=== PATIENT | female | born 1930 | race Caucasian/White ===

== ENCOUNTER 2016-12-02 12:53 | Inpatient (IN) | payer OTHER, BC ==
[~2016-12-02] VITALS: Ht 165.1 cm; Wt 75.5 kg
[2016-12-02 14:29] LABS: HEMATOCRIT 37.6 % (36.0-46.0); MCH 29.4 PG (29.0-34.0); MCHC 34.8 G/DL (30.0-36.0); MCV 84.3 FL (83-99); MEAN PLAT.VOLUME 9.1 uM^3 (9.5-12.4); PLATELET COUNT 285 K/uL (156-360); RBC DIS.WIDTH-CV 12.2 % (11.8-14.6); RBC DIS.WIDTH-SD 37.1 % (39-53); RED BLOOD COUNT 4.46 M/uL (3.80-5.20)
[2016-12-02 14:33] LABS: CHLORIDE 91 mEq/L (99-109); POTASSIUM 3.9 mEq/L (3.7-5.4); SODIUM 126 mEq/L (136-147)
[2016-12-02 14:34] LABS: GLUCOSE 118 mg/dL (70-99)
[2016-12-02 14:36] LABS: ANION GAP 14 MEQ/L (2-14)
[2016-12-02 14:38] LABS: GFR ESTIMATE (CALCULATED) 30 mL/min/
[2016-12-02 14:39] LABS: UREA NITROGEN (BUN) 30 mg/dL (9-23)
[2016-12-02] MEDS ORDERED: ZYRTEC5 MG PO (16:06)
[2016-12-02] MEDS ORDERED: OMEPRAZOLE40 M1 PO (16:07)
[2016-12-02] MEDS ORDERED: MULTIVITAMIN1 EAC2 PO (16:07)
[2016-12-02] MEDS ORDERED: TRAMADOL HCL50 MG PO (16:08)
[2016-12-02] MEDS ORDERED: LISINOPRIL20 MG PO (16:08)
[2016-12-02] MEDS ORDERED: BISOPROLOL-HCT1 EACH PO (16:08)
[2016-12-02] MEDS ORDERED: MELOXICAM15 MG PO (16:09)
[2016-12-02] MEDS ORDERED: LO-DOSE ASPIRIN81 M2 PO (16:09)
[2016-12-02 17:37] LABS: TROP-I INTERPRETATION POSITIVE
[2016-12-02 17:51] LABS: TROPONIN-I 3.55 ng/mL (0.0-0.30)
[2016-12-02 18:11] LABS: ADD MIUA? YES; BILIRUBIN NEGATIVE; BLOOD LARGE; COLOR YELLOW ((YELLOW)); GLUCOSE (STRIP) NEGATIVE; KETONES TRACE; LEUKOCYTES NEGATIVE; NITRITE NEGATIVE; PH, URINE 5.5 (5-8); PROTEIN (STRIP) 30; SPECIFIC GRAVITY 1.016 (1.000-1.030); UROBILINOGEN 0.2 MG/DL (0.2-1.0)
[2016-12-02 18:12] LABS: INTER. NORMALIZED RATIO 1.1; PROTHROMBIN TIME 11.4 (9.2-11.2); PTT 36.4 (25-32)
[2016-12-02 18:29] LABS: BACTERIA NONE SEEN; CASTS NONE SEEN /LPF; CRYSTALS NONE SEEN; EPITHELIAL CELLS RARE; MUCUS NONE SEEN; PATHOLOGICAL CAST NONE SEEN; SMALL ROUND CELL NONE SEEN; UCUL ADDED? NO; WHITE BLOOD CELLS 0-5 /HPF (0-5); YEAST-LIKE CELL NONE SEEN
[2016-12-02] MEDS ORDERED: PRILOSEC20 MG PO (18:42)
[2016-12-02] MEDS ORDERED: SYSTANE GEL EYE10 ML BOTH EYES (18:44)
[2016-12-02] MEDS ORDERED: AMBIEN5 MG PO (18:44)
[2016-12-02] MEDS ORDERED: CALCIUM 500 +1 EAC4 PO (19:18)
[2016-12-02 20:19] LABS: CREATINE KINASE 7998 IU/L (1-294)
[2016-12-02 23:01] VITALS: BP 117/55
[2016-12-02 23:02] VITALS: BP 117/55
[2016-12-02 23:18] LABS: TROP-I INTERPRETATION POSITIVE
[2016-12-02 23:46] LABS: TROPONIN-I 2.28 ng/mL (0.0-0.30)
[2016-12-03 02:20] VITALS: BP 118/59
[2016-12-03 07:13] LABS: Estimated Average Glucose 120 mg/dL (70-123); HEMOGLOBIN A1c (GLYCOHEMOGLOB) 5.8 % HGB (Below 5.7)
[2016-12-03 07:14] LABS: EOSINOPHIL (%) 4.1 % (0-5); EOSINOPHIL COUNT 0.1 K/uL (0-0.3); HEMATOCRIT 30.9 % (36.0-46.0); IMMATURE GRANULOCYTE (%) 0.3 % (0.0-0.7); LYMPHOCYTE COUNT 0.9 K/uL (1.0-2.8); MCH 29.2 PG (29.0-34.0); MCHC 34.3 G/DL (30.0-36.0); MCV 85.1 FL (83-99); MEAN PLAT.VOLUME 8.9 uM^3 (9.5-12.4); MONOCYTE (%) 9.9 % (3-12); MONOCYTE COUNT 0.3 K/uL (0-0.8); NEUTROPHIL (%) 60.5 % (45-76); NEUTROPHIL COUNT 2.1 K/uL (1.8-6.4); PLATELET COUNT 209 K/uL (156-360); RBC DIS.WIDTH-CV 12.7 % (11.8-14.6); RBC DIS.WIDTH-SD 39.4 % (39-53); RED BLOOD COUNT 3.63 M/uL (3.80-5.20)
[2016-12-03 07:15] LABS: WHITE BLOOD COUNT 3.5 K/uL (4.1-10.2)
[2016-12-03 07:48] VITALS: BP 115/56
[2016-12-03 07:51] LABS: ALKALINE PHOSPHATASE 34 IU/L (3-129); ANION GAP 10 MEQ/L (2-14); CHLORIDE 92 MEQ/L (99-109); GFR ESTIMATE (CALCULATED) 41 mL/min/; GLUCOSE 111 mg/dL (70-99); HDL CHOLESTEROL 36 MG/DL (Desirable>=50); LDL CHOLESTEROL 73 mg/dL (Desirable<100); NON-HDL CHOLESTEROL 88 mg/dL (Desirable<160); POTASSIUM 3.5 MEQ/L (3.7-5.4); SAMPLE HEMOLYSIS CHECK 0; SAMPLE ICTERIC CHECK 0; SAMPLE LIPEMIA CHECK 0; SODIUM 126 MEQ/L (136-147); TOTAL BILIRUBIN 0.3 MG/DL (0.0-1.0); TOTAL CHOLESTEROL 124 mg/dL (Desirable<200); TRIGLYCERIDES 75 MG/DL (Normal: <150); UREA NITROGEN (BUN) 31 mg/dL (9-23)
[2016-12-03 07:57] LABS: TROP-I INTERPRETATION POSITIVE
[2016-12-03 08:03] LABS: TROPONIN-I 1.94 ng/mL (0.0-0.30)
[2016-12-03 09:52] LABS: CREATINE KINASE 7340 IU/L (1-294)
[2016-12-03 11:35] VITALS: BP 120/59
[2016-12-03 14:42] LABS: TROP-I INTERPRETATION POSITIVE
[2016-12-03 15:09] LABS: TROPONIN-I 1.39 ng/mL (0.0-0.30)
[2016-12-03 15:29] VITALS: BP 115/58
[2016-12-03 19:49] VITALS: BP 139/64
[2016-12-03 22:14] VITALS: BP 155/71
[2016-12-03 22:53] LABS: TROP-I INTERPRETATION POSITIVE
[2016-12-03 22:54] LABS: TROPONIN-I 1.28 ng/mL (0.0-0.30)
[2016-12-04 03:16] VITALS: BP 126/75
[2016-12-04 06:08] LABS: EOSINOPHIL (%) 5.8 % (0-5); EOSINOPHIL COUNT 0.2 K/uL (0-0.3); HEMATOCRIT 34.1 % (36.0-46.0); LYMPHOCYTE COUNT 0.9 K/uL (1.0-2.8); MCH 29.2 PG (29.0-34.0); MCV 85.9 FL (83-99); MEAN PLAT.VOLUME 9.4 uM^3 (9.5-12.4); MONOCYTE (%) 15.4 % (3-12); MONOCYTE COUNT 0.6 K/uL (0-0.8); NEUTROPHIL (%) 55.5 % (45-76); NEUTROPHIL COUNT 2.1 K/uL (1.8-6.4); PLATELET COUNT 235 K/uL (156-360); RBC DIS.WIDTH-CV 12.8 % (11.8-14.6); RBC DIS.WIDTH-SD 40.1 % (39-53); RED BLOOD COUNT 3.97 M/uL (3.80-5.20); WHITE BLOOD COUNT 3.8 K/uL (4.1-10.2)
[2016-12-04 06:45] LABS: ANION GAP 7 MEQ/L (2-14); CHLORIDE 96 MEQ/L (99-109); GFR ESTIMATE (CALCULATED) 41 mL/min/; GLUCOSE 95 mg/dL (70-99); SAMPLE HEMOLYSIS CHECK 0; SAMPLE ICTERIC CHECK 0; SAMPLE LIPEMIA CHECK 0; SODIUM 130 MEQ/L (136-147); UREA NITROGEN (BUN) 28 mg/dL (9-23)
[2016-12-04 06:48] LABS: POTASSIUM 4.5 MEQ/L (3.7-5.4)
[2016-12-04 08:39] VITALS: BP 137/61
[2016-12-04 12:23] VITALS: BP 109/54
[2016-12-04 16:02] VITALS: BP 138/64
[2016-12-04 18:55] VITALS: BP 157/80
[2016-12-04 22:28] VITALS: BP 152/67
[2016-12-05 04:09] VITALS: BP 142/89
[2016-12-05 07:31] VITALS: BP 131/61
[2016-12-05 11:36] VITALS: BP 126/58
[2016-12-05 12:55] LABS: ANION GAP 11 MEQ/L (2-14); CHLORIDE 94 MEQ/L (99-109); GFR ESTIMATE (CALCULATED) 50 mL/min/; GLUCOSE 125 mg/dL (70-99); POTASSIUM 4.4 MEQ/L (3.7-5.4); SAMPLE HEMOLYSIS CHECK 0; SAMPLE ICTERIC CHECK 0; SAMPLE LIPEMIA CHECK 0; SODIUM 131 MEQ/L (136-147); UREA NITROGEN (BUN) 27 mg/dL (9-23)
[2016-12-05 15:47] VITALS: BP 147/65
[2016-12-05 20:06] VITALS: BP 127/60
[2016-12-05 22:50] VITALS: BP 127/59
[2016-12-06 03:21] VITALS: BP 126/75
[2016-12-06 06:39] LABS: EOSINOPHIL (%) 8.5 % (0-5); EOSINOPHIL COUNT 0.5 K/uL (0-0.3); HEMATOCRIT 34.3 % (36.0-46.0); IMMATURE GRANULOCYTE (%) 0.3 % (0.0-0.7); LYMPHOCYTE COUNT 1.5 K/uL (1.0-2.8); MCH 29.6 PG (29.0-34.0); MCHC 33.8 G/DL (30.0-36.0); MCV 87.5 FL (83-99); MEAN PLAT.VOLUME 9.7 uM^3 (9.5-12.4); MONOCYTE (%) 10.9 % (3-12); MONOCYTE COUNT 0.6 K/uL (0-0.8); NEUTROPHIL (%) 55.3 % (45-76); NEUTROPHIL COUNT 3.2 K/uL (1.8-6.4); PLATELET COUNT 259 K/uL (156-360); RBC DIS.WIDTH-CV 12.9 % (11.8-14.6); RBC DIS.WIDTH-SD 41.4 % (39-53); RED BLOOD COUNT 3.92 M/uL (3.80-5.20)
[2016-12-06 06:42] LABS: WHITE BLOOD COUNT 5.9 K/uL (4.1-10.2)
[2016-12-06 06:58] LABS: ANION GAP 10 MEQ/L (2-14); CHLORIDE 95 MEQ/L (99-109); GFR ESTIMATE (CALCULATED) 41 mL/min/; GLUCOSE 104 mg/dL (70-99); POTASSIUM 4.7 MEQ/L (3.7-5.4); SAMPLE HEMOLYSIS CHECK 0; SAMPLE ICTERIC CHECK 0; SAMPLE LIPEMIA CHECK 0; SODIUM 132 MEQ/L (136-147); UREA NITROGEN (BUN) 28 mg/dL (9-23)
[2016-12-06 07:45] VITALS: BP 129/58
[2016-12-06 11:09] VITALS: BP 124/60
[2016-12-06] MEDS ORDERED: CLOPIDOGREL75 MG PO (13:54)
[2016-12-06] MEDS ORDERED: DONEPEZIL HCL5 MG PO (13:54)
[2016-12-06] MEDS ORDERED: LIPITOR20 MG PO (13:57)
[2016-12-06 16:05] VITALS: BP 151/67
== END 2016-12-06 16:55 | DRG 683 ==
LOC: EME 12:53 → 4EAST 19:28 → EDOF 19:28 → 4EAST 19:28
PROVIDERS: Family Medicine
DX: N17.9 Acute kidney failure, unspecified (principal); M62.82 Rhabdomyolysis; E87.1 Hypo-osmolality and hyponatremia; E87.6 Hypokalemia; R79.89 Other specified abnormal findings of blood chemistry; S09.90XA Unspecified injury of head, initial encounter; W19.XXXA Unspecified fall, initial encounter; Y92.009 Unspecified place in unspecified non-institutional (private) residence as the place of occurrence of the external cause; F03.90 Unspecified dementia, unspecified severity, without behavioral disturbance, psychotic disturbance, mood disturbance, and anxiety; R31.9 Hematuria, unspecified; R55 Syncope and collapse; R42 Dizziness and giddiness; R29.6 Repeated falls; Z91.81 History of falling; R73.9 Hyperglycemia, unspecified; I10 Essential (primary) hypertension; E78.5 Hyperlipidemia, unspecified; K21.9 Gastro-esophageal reflux disease without esophagitis; I45.10 Unspecified right bundle-branch block; I44.4 Left anterior fascicular block; M19.90 Unspecified osteoarthritis, unspecified site; M81.0 Age-related osteoporosis without current pathological fracture; Z85.828 Personal history of other malignant neoplasm of skin
CPT/HCPCS: 70450; 71020; 80048; 80053; 80061; 81003; 82550 91; 83036; 84484; 85025; 85027; 85610; 85730; 87086; 93005; 93306; 99281; 99285; J7030

== ENCOUNTER 2017-05-09 08:49 | Inpatient (IN) | payer OTHER, BC ==
[~2017-05-09] VITALS: Ht 167.6 cm; Wt 66.3 kg
[~2017-05-09 08:49] MED LIST: AMBIEN5 MG PO; BISOPROLOL-HCT1 EACH PO; CALCIUM 500 +1 EAC4 PO; CLOPIDOGREL75 MG PO; DONEPEZIL HCL5 MG PO; LIPITOR20 MG PO; LISINOPRIL20 MG PO; LO-DOSE ASPIRIN81 M2 PO; MELOXICAM15 MG PO; MULTIVITAMIN1 EAC2 PO; OMEPRAZOLE40 M1 PO; PRILOSEC20 MG PO; SYSTANE GEL EYE10 ML BOTH EYES; TRAMADOL HCL50 MG PO; ZYRTEC5 MG PO
[2017-05-09 10:49] LABS: EOSINOPHIL (%) 0.1 % (0-5); HEMATOCRIT 35.9 % (36.0-46.0); IMMATURE GRANULOCYTE (%) 0.7 % (0.0-0.7); IMMATURE GRANULOCYTE COUNT 0.1 K/uL; INSTRUMENT ABS NEUTROPHIL CT 8.5 K/uL; LYMPHOCYTE COUNT 0.6 K/uL (1.0-2.8); MCV 85.3 FL (83-99); MEAN PLAT.VOLUME 8.7 uM^3 (9.5-12.4); MONOCYTE (%) 7.1 % (3-12); MONOCYTE COUNT 0.7 K/uL (0-0.8); NEUTROPHIL (%) 85.9 % (45-76); NEUTROPHIL COUNT 8.5 K/uL (1.8-6.4); PLATELET COUNT 336 K/uL (156-360); RBC DIS.WIDTH-CV 12.4 % (11.8-14.6); RBC DIS.WIDTH-SD 38.7 % (39-53); RED BLOOD COUNT 4.21 M/uL (3.80-5.20); WHITE BLOOD COUNT 9.9 K/uL (4.1-10.2)
[2017-05-09 10:59] LABS: INTER. NORMALIZED RATIO 1.1; PROTHROMBIN TIME 11.4 (9.2-11.2); PTT 35.5 (25-32)
[2017-05-09 11:08] LABS: CHLORIDE 93 mEq/L (99-109); POTASSIUM 4.5 mEq/L (3.7-5.4); SODIUM 128 mEq/L (136-147)
[2017-05-09 11:09] LABS: GLUCOSE 127 mg/dL (70-99)
[2017-05-09 11:11] LABS: ANION GAP 10 MEQ/L (2-14)
[2017-05-09 11:13] LABS: GFR ESTIMATE (CALCULATED) 56 mL/min/
[2017-05-09 11:14] LABS: UREA NITROGEN (BUN) 18 mg/dL (9-23)
[2017-05-09 11:16] LABS: CREATINE KINASE 630 IU/L (1-294); TOTAL CK 630 IU/L (1-294); TROP-I INTERPRETATION NEGATIVE; TROPONIN-I 0.02 ng/mL (0.0-0.30)
[2017-05-09 11:24] LABS: CK-MB 4.7 ng/mL (0.0-4.9)
[2017-05-09] MEDS ORDERED: OMEPRAZOLE40 M1 PO (13:39)
[2017-05-09] MEDS ORDERED: ATORVASTATIN CA20 MG PO (13:42)
[2017-05-09] MEDS ORDERED: PLAVIX75 MG PO (13:42)
[2017-05-09] MEDS ORDERED: AMBIEN5 MG PO (13:43)
[2017-05-09] MEDS ORDERED: LEXAPRO5 MG PO (13:43)
[2017-05-09] MEDS ORDERED: FLONASE16 G1 BOTH NARES (13:43)
[2017-05-09] MEDS ORDERED: NAMZARIC 28 MG1 EACH PO (13:44)
[2017-05-09] MEDS ORDERED: MELOXICAM15 MG PO (13:44)
[2017-05-09 16:35] VITALS: BP 148/67
[2017-05-09 19:37] VITALS: BP 125/73
[2017-05-10] VITALS (7 sets, daily range): BP systolic 99–145; BP diastolic 48–65
[2017-05-10 06:23] LABS: ANION GAP 6 MEQ/L (2-14); CHLORIDE 99 MEQ/L (99-109); CREATINE KINASE 242 IU/L (1-294); GFR ESTIMATE (CALCULATED) 56 mL/min/; GLUCOSE 115 mg/dL (70-99); POTASSIUM 4.3 MEQ/L (3.7-5.4); SAMPLE HEMOLYSIS CHECK 0; SAMPLE ICTERIC CHECK 0; SAMPLE LIPEMIA CHECK 0; SODIUM 130 MEQ/L (136-147); UREA NITROGEN (BUN) 19 mg/dL (9-23)
[2017-05-10 06:37] LABS: HEMATOCRIT 29.2 % (36.0-46.0); MCH 29.7 PG (29.0-34.0); MCHC 34.2 G/DL (30.0-36.0); MCV 86.6 FL (83-99); MEAN PLAT.VOLUME 9.1 uM^3 (9.5-12.4); PLATELET COUNT 299 K/uL (156-360); RBC DIS.WIDTH-CV 12.7 % (11.8-14.6); RBC DIS.WIDTH-SD 40.3 % (39-53); RED BLOOD COUNT 3.37 M/uL (3.80-5.20); WHITE BLOOD COUNT 6.4 K/uL (4.1-10.2)
[2017-05-10 10:16] LABS: ADD MIUA? YES; BILIRUBIN NEGATIVE; BLOOD SMALL; COLOR YELLOW ((YELLOW)); GLUCOSE (STRIP) NEGATIVE; KETONES 5; LEUKOCYTES LARGE; NITRITE NEGATIVE; PROTEIN (STRIP) NEGATIVE; SPECIFIC GRAVITY 1.019 (1.000-1.030); UROBILINOGEN 0.2 MG/DL (0.2-1.0)
[2017-05-10 10:25] LABS: BACTERIA 1+ /HPF; EPITHELIAL CELLS 3+ /HPF; MUCUS TRACE /LPF; RED BLOOD CELLS 0-5 /HPF (0-5); WHITE BLOOD CELLS 0-5 /HPF (0-5)
[2017-05-11 03:41] VITALS: BP 132/71
[2017-05-11 06:54] VITALS: BP 139/65
[2017-05-11 07:37] LABS: ANION GAP 7 MEQ/L (2-14); CHLORIDE 100 MEQ/L (99-109); GFR ESTIMATE (CALCULATED) > 59 mL/min/; GLUCOSE 100 mg/dL (70-99); POTASSIUM 4.2 MEQ/L (3.7-5.4); SAMPLE HEMOLYSIS CHECK 0; SAMPLE ICTERIC CHECK 0; SAMPLE LIPEMIA CHECK 0; SODIUM 129 MEQ/L (136-147); UREA NITROGEN (BUN) 18 mg/dL (9-23)
[2017-05-11 11:09] VITALS: BP 133/62
[2017-05-11 15:16] VITALS: BP 120/59
[2017-05-11 19:25] VITALS: BP 143/63
[2017-05-11 23:18] VITALS: BP 131/57
[2017-05-12 07:00] VITALS: BP 143/65
[2017-05-12 07:25] LABS: ANION GAP 6 MEQ/L (2-14); CHLORIDE 104 MEQ/L (99-109); GFR ESTIMATE (CALCULATED) 56 mL/min/; GLUCOSE 97 mg/dL (70-99); POTASSIUM 4.2 MEQ/L (3.7-5.4); SAMPLE HEMOLYSIS CHECK 0; SAMPLE ICTERIC CHECK 0; SAMPLE LIPEMIA CHECK 0; SODIUM 132 MEQ/L (136-147); UREA NITROGEN (BUN) 22 mg/dL (9-23)
[2017-05-12 10:55] VITALS: BP 122/57
[2017-05-12 15:55] VITALS: BP 121/58
[2017-05-12 19:00] VITALS: BP 110/63
[2017-05-12 22:42] VITALS: BP 121/58
[2017-05-13 03:26] VITALS: BP 115/60
[2017-05-13 07:02] LABS: ANION GAP 7 MEQ/L (2-14); CHLORIDE 108 MEQ/L (99-109); GFR ESTIMATE (CALCULATED) > 59 mL/min/; GLUCOSE 90 mg/dL (70-99); POTASSIUM 4.4 MEQ/L (3.7-5.4); SAMPLE HEMOLYSIS CHECK 0; SAMPLE ICTERIC CHECK 0; SAMPLE LIPEMIA CHECK 0; SODIUM 136 MEQ/L (136-147); UREA NITROGEN (BUN) 19 mg/dL (9-23)
[2017-05-13 07:20] VITALS: BP 155/68
[2017-05-13] MEDS ORDERED: LIDOCAINE700 MG TD (07:44)
== END 2017-05-13 12:15 | DRG 641 ==
LOC: EME 08:49 → 5EAST 12:39 → EDOF 12:39 → 5EAST 16:38
PROVIDERS: Emergency Medicine; Family Medicine
DX: E87.1 Hypo-osmolality and hyponatremia (principal); S40.011A Contusion of right shoulder, initial encounter; S70.11XA Contusion of right thigh, initial encounter; S70.12XA Contusion of left thigh, initial encounter; W19.XXXA Unspecified fall, initial encounter; I10 Essential (primary) hypertension; E78.5 Hyperlipidemia, unspecified; F03.90 Unspecified dementia, unspecified severity, without behavioral disturbance, psychotic disturbance, mood disturbance, and anxiety; K21.9 Gastro-esophageal reflux disease without esophagitis; R73.03 Prediabetes; G47.00 Insomnia, unspecified; F32.9 Major depressive disorder, single episode, unspecified; M15.9 Polyosteoarthritis, unspecified; M24.562 Contracture, left knee; Z66 Do not resuscitate; Z51.5 Encounter for palliative care; Y92.009 Unspecified place in unspecified non-institutional (private) residence as the place of occurrence of the external cause; Z79.82 Long term (current) use of aspirin; Z79.02 Long term (current) use of antithrombotics/antiplatelets
CPT/HCPCS: 70450; 71010; 71250; 73030; 73080; 73130; 73502; 80048; 81003; 82550; 82553; 84484; 85025; 85027; 85610; 85730; 93005; 97530 GP; 99281; 99285; J1644; J7030